=== PATIENT | male | born 1945 | race African-American/Black ===

== ENCOUNTER 2020-03-26 10:50 | Outpatient (CLI) | payer MEDICARE ==
--- NOTE | 2020-03-26 15:15 | NM ---
Radionucleotide bone scan HISTORY: Prostate cancer. Kidney cancer. Elevated PSA level. FINDINGS: No comparison. Degenerative type uptake of the shoulders, knees, and feet. Small focus of increased uptake overlies the lower right sternum. Confirmed on oblique images. Very subtle focus projects over the lateral aspect of the left hip acetabulum. Favored to be degenera tive. IMPRESSION : No evidence of widespread osseous metastasis. Sternal abnormality does not demonstrate typical charac teristics for trauma, so that a solitary metastatic lesion must be considered for follow-up.
== END 2020-03-26 10:51 | disposition home or self-care (01) ==
LOC: NM 10:50
PROVIDERS: ATTEND Internal Medicine Hematology & Oncology
DX: C61 Malignant neoplasm of prostate (principal); R93.89 Abnormal findings on diagnostic imaging of other specified body structures
CPT/HCPCS: 78306; A9503

== ENCOUNTER 2020-06-30 10:27 | Outpatient (CLI) | payer MEDICARE | END 2020-06-30 10:28 | disposition home or self-care (01) | LOC: NM 10:27 | PROVIDERS: ATTEND Internal Medicine Hematology & Oncology | DX: C61 Malignant neoplasm of prostate (principal) | CPT/HCPCS: 78306; A9503; 84153 ==